=== PATIENT | female | born 1950 | race Caucasian/White ===

== ENCOUNTER 2020-02-02 09:53 | Outpatient (CLI) | payer MEDICARE, SELFPAY ==
[2020-02-02 10:28] LABS: Blood Urea Nitrogen 13 mg/dL (7-17); Calcium 8.8 mg/dL (8.4-10.2); Carbon Dioxide 28 mmol/L (22-30); Chloride 102 mmol/L (98-107); Estimated Glomerular Filt Rate > 60; Glucose 167 mg/dL (65-105); Sodium 137 mmol/L (137-145)
== END 2020-02-02 09:54 | disposition home or self-care (01) ==
PROVIDERS: Anesthesiology; PCP Family Medicine Adolescent Medicine; Visit Provider Surgery Plastic and Reconstructive Surgery
DX: Z79.899 Other long term (current) drug therapy (principal)
CPT/HCPCS: 36415; 80048

== ENCOUNTER 2020-02-08 00:22 | Outpatient (CLI) | payer MEDICARE, SELFPAY ==
[2020-02-08 18:41] LABS: SARS-CoV-2 RNA PCR Negative
== END 2020-02-08 00:23 | disposition home or self-care (01) ==
LOC: ANHCOVIDDT 00:23
PROVIDERS: PCP Family Medicine Adolescent Medicine; Visit Provider Surgery Plastic and Reconstructive Surgery
DX: Z01.812 Encounter for preprocedural laboratory examination (principal); Z20.828 Contact with and (suspected) exposure to other viral communicable diseases
CPT/HCPCS: 87635; C9803; U0003

== ENCOUNTER 2020-02-10 01:53 | Day surgery (SDC) | payer MEDICARE, SELFPAY ==
[2020-01-31 15:29] VITALS: BMI 34.0
[2020-02-10] VITALS (8 sets, daily range): BP systolic 113–150; BP diastolic 52–89; PULSE 49–61; RESP 14–17; TEMP 36.4; O2SAT 92–99
[2020-02-10] MEDS: LACTATED RINGERS 1,000 ML 30 ML IV CONT ×2 (10:50→14:49)
--- NOTE | 2020-02-10 10:59 | WPDANESEPPF ---
Anes - Initial Pre Proc Eval Procedure: Operation Date: 02/10/20 12:00 Proposed Procedures p Removal Two Implants Right Breast, Possible Right Breast Capsulectomy - Nathanael Eng MD Date/Time: 02/10/20 10:59 Surgeon: Nathanael Eng MD Pre Op Diagnosis: Hx Breast Reconstruction Patient Data Age: 69 Gender: F Height: 5 ft 9 in Weight: 103.6 kg Last Vital Signs Temp 36.4 C 02/10/20 10:15 Pulse 61 02/10/20 10:15 Resp 17 02/10/20 10:15 BP 150/72 H 02/10/20 10:15 Pulse Ox 95 02/10/20 10:15 Allergies Allergy/AdvReac Type Severity Reaction Status Date / Time No Known Allergies Allergy Verified 01/31/20 15:02 Home Medications Medication Instructions Recorded Confirmed Type anastrozole 1 mg tablet 1 mg PO HS 01/05/20 01/31/20 History furosemide 20 mg tablet 20 mg PO QAM 01/05/20 01/31/20 History isosorbide dinitrate 20 mg tablet 30 mg PO DAILY 01/05/20 02/10/20 History lisinopril 20 mg tablet 20 mg PO DAILY 01/05/20 02/10/20 History metoprolol tartrate 25 mg tablet 25 mg PO DAILY 01/05/20 02/10/20 History rivaroxaban 20 mg tablet 20 mg PO DAILY 01/05/20 01/31/20 History sertraline 50 mg tablet 50 mg PO HS 01/05/20 02/10/20 History docusate sodium 100 mg capsule 100 mg PO BID #14 cap 02/06/20 Rx docusate sodium 100 mg capsule 100 mg PO BID #14 cap 02/06/20 Rx hydrocodone 5 mg-acetaminophen 325 1 tablet PO Q6H PRN #15 tablet 02/06/20 02/06/20 Rx mg tablet ondansetron HCl 4 mg tablet 4 mg PO Q6H PRN #30 tablet 02/06/20 Rx ondansetron HCl 4 mg tablet 4 mg PO Q6H PRN #30 tablet 02/06/20 Rx Patient hx anesthesia problems: none Family hx anesthesia problems: none PMFSH Past Medical History Medical History Afib Breast cancer 1990, 2019 Hypertension Pacemaker 2004, 2008, 2016 Social History Social History Smoking status: Former smoker Additional smoking assessment comments: [id number] Alcohol intake: current Substance use: never Living arrangements: with family Spiritual care concerns: No Anes - Eval Final PreProcedure Day of Procedure 02/10/20 10:59 Patient weight: obese Heart: regular rate and rhythm Lungs: decreased breath sounds Airway: Mallampati scale class II Neurological: alert and oriented Last oral intake: >/= 8 hours ASA classification: III Emergent: no Anesthetic plan: proceed Anesthesia type and monitoring: general LMA and standard monitoring Informed Consent: The patient's anesthetic plan and its attendant risks and benefits were discussed with the patient/family/POA. Questions were solicited and answers provided to the satisfaction of the patient/family/POA.
--- NOTE | 2020-02-10 12:57 | WPDHPUPDATE1 ---
History and Physical Update Update Date/Time: 02/10/20 12:57 History and Physical has been reviewed, including an updated exam of the patient. There are NO changes in the patient's condition. Risks, benefits, and alternatives have been discussed and questions answered. Patient agrees to proceed with procedure.
[2020-02-10] MEDS: ceFAZolin 2 GM/D5W 50 ML 2 GM/50 ML BAG IVPB (13:24)
[2020-02-10] MEDS: LIDO 1%/EPINEPHRINE 1:100,000 20 ML VIAL 80 ML INFILTRATE (13:55)
--- NOTE | 2020-02-10 14:51 | PM.PROC ---
Procedure Note - Detailed Date of procedure: 02/10/20 Pre-op diagnosis: Hx Breast Reconstruction Post-op diagnosis: same (1. Acquired breast deformity 2. history breast reconstruction) Procedure performed: 1. Right breast implant material removal. 2. Right breast capsulectomy Description of procedure: Patient was marked in the preoperative holding area with her verification. She was taken to the operating room placed supine on the operating room table. Anesthesia was provided by anesthesiology and prepped and draped in a standard sterile fashion. Surgical time-out was taken. 1% lidocaine and 0.25% Marcaine with epinephrine was used anesthetize as a field block. A 15 blade used to make an incision along the lateral inferior scar. Dissection was continued down to the capsule was identified. I completely excised the capsule. It was clear the implant had ruptured and this was removed and was textured. She was confident there were 2 implants and as such I could not find any implant laterally and I opened dissection of the medial/superior incision. Thorough examination did not identify an additional implant. I copiously irrigated with 1500 cc of saline on TUR tubing. Placed a 15 Al drain laterally and sutured into place with 3-0 nylon. I closed with 2-0 Vicryl followed by 3-0 Monocryl in a running subcuticular 4-0 Monocryl with tissue glue. Surgical bra and dressings were placed. She was awoken taken the PACU without difficulty. All instrument sponge counts were correct at the end of the case. Anesthesia: GLMA Surgeon: Nathanael Eng MD Estimated blood loss (mL): 10 Drains: Yes (15 Al) Packing: No Pathology: yes (Capsule / tissue) Complications: No immediate complications Condition: stable Disposition: PACU Findings: Textured / ruptured right breast implant. Only a single implant was identified. The patient had reported 2 implants present.
== END 2020-02-10 16:56 | disposition home or self-care (01) ==
PROVIDERS: PCP Family Medicine Adolescent Medicine; Visit Provider Surgery Plastic and Reconstructive Surgery
PROC: (CPT 19342; principal; 2020-02-10 12:00)
DX: T85.41XA Breakdown (mechanical) of breast prosthesis and implant, initial encounter (principal); Z85.3 Personal history of malignant neoplasm of breast; Z90.12 Acquired absence of left breast and nipple; I10 Essential (primary) hypertension; Z95.0 Presence of cardiac pacemaker; Z87.891 Personal history of nicotine dependence; Z79.899 Other long term (current) drug therapy; X58.XXXA Exposure to other specified factors, initial encounter
CPT/HCPCS: 19371; 88304; 88305; J0690; J1100; J2250; J2405; J2704; J3010; J7120

== ENCOUNTER 2021-08-26 08:30 | Outpatient (RCR) | payer MEDICARE, SELFPAY ==
--- NOTE | 2021-08-12 11:29 | PTOPEVAL ---
PHYSICAL THERAPY EVALUATION and PLAN OF CARE Thank you for referring Nilda Mary to [facility] [place].? Nilda will follow up every two weeks for a month as needed. Please review, sign, date and return this plan of care RAVI. I agree with and certify that the following plan of care is medically necessary. Referring Physician Date Attending Provider: Trista Martin, PA Evaluation Outpatient Past Medical History Neurological History Hx Neurological Disorders No Significant History Cardiovascular History Hx Atrial Fibrillation Yes: HX OF Hx Congestive Heart Failure Yes: HX OF Hx Hypertension Yes Hx Pacemaker Yes: 2003, 2018 Musculoskeletal History Hx Arthritis Yes: HANDS & SHOULDERS Hx Orthopedic Surgery Yes: RT CARPAL TUNNEL RELEASE, BILATERAL ROTATOR CUFF REPAIR HEENT History Hx Macular Degeneration Yes Hx Dental Problems Yes: LOWER PARTIAL Hx Other HEENT Disorders Yes: READING GLASSES Integumentary History Hx Shingles Yes: HX OF FACE Reproductive History Hx Post Menopausal Yes Hx Other Reproductive Disorders Yes: RT BREAST CA 1990, LT BREAST CA 2019 LT LUMPECTOMY Psychosocial History Hx Bipolar Disorder Yes Other History Hx Cancer Yes: RT BREAST CA 1990, LT BREAST CA 2019 Hx Chemotherapy Yes: WITH RT BREAST CA Hx Implanted Device Yes: PACEMAKER Hx Radiation Therapy Yes: WITH LT BREAST CA Hx Recent Acute Infection Yes: UTI DECEMBER - ANTIBIOTICS COMPLETED STATES DR. VILLAR AWARE Diagnosis stress incontinence Onset chronic Subjective Information Nilda reports that she has Query Text:As Reported By Patient/ been having some stress Family urinary incontinence. States that she was informed by her doctor that tea is a bladder irritant so she eliminated that from her diet and the problem is much better. Will sometimes have a sudden urge to go and will not quite made it to the bathroom. Some leakage with sneezing and coughing when the bladder is more full. No longer feels like she has to use a pad or a liner since she eliminated the tea. Experiences strong urge to go to the bathroom
--- NOTE | 2021-08-26 09:06 | PTOPEVAL ---
PHYSICAL THERAPY DISCHARGE NOTE Thank you for referring Nilda Mary to [facility].? Nilda participated in physical therapy to address stress and urge incontinence. Please review, sign, date and return this plan of care RAVI. I agree with and certify that the following plan of care is medically necessary. Referring Physician Date Attending Provider: Trista Martin, PA Discharge Diagnosis stress incontinence Onset chronic Subjective Information Nilda states that she has been Query Text:As Reported By Patient/ doing her exercises and Family states that she has not been having any leaking since starting them. She feels like she has control over her bladder. Is not rushing to go to the bathroom anymore. Self Report Self Report Pain Level 0 Pain Score Pain Score 0: Self Report Pelvic Health Evaluation Nutrition Water Intake (8oz cups/day) 5 Pelvic Floor Assessment Permission Received for External/ Yes: external Internal Perineal Exam Quick Levator Ani Contraction in 15 8 Seconds Pelvic Health Therapy Pelvic Health Exercise Isolated Levator Ani Contraction educated to perform in Query Text:Position, Hold/Relaxation hooklying 10reps x4sets/day Time, Repetitions Overflow Technique, Hip Add with Ball hip add set with ball and Hip, Hip Abd with Band breathing, hip abd set with Query Text:Position, Hold/Relaxation band and breathing Time, Repetitions Relaxation Technique diaphragmatic breathing, adding pelvic floor contraction Other Exercises -bent knee fall out with Query Text:Record Sets, Repetitions, steady breathing (avoiding Resistance and Position valsava) and steady abdominal and pelvic floor contraction with monreal band - lower abdominal bracing: right knee at 90/90 and left marching progressing to extending out; same on contralateral side -discussion and education on how to progress exercises, muscle hypertrophy, manage muscle strength with aging -educated on valsalva maneuver and the how to avoid valsalva maneuver in daily functional tasks including sit to stand
== END 2021-10-28 14:42 | disposition home or self-care (01) ==
LOC: ANHPT 08:30
PROVIDERS: PCP Family Medicine Adolescent Medicine; Visit Provider Physician Assistant
DX: N39.3 Stress incontinence (female) (male) (principal)
CPT/HCPCS: 97110; 97163; 97530

== ENCOUNTER → 2021-09-10 09:56 | Outpatient (CLI) | payer MEDICARE, SELFPAY ==
[2021-09-10 12:03] LABS: SARS-CoV-2 RNA PCR Negative
== END ==
PROVIDERS: PCP Family Medicine Adolescent Medicine; Visit Provider Family Medicine Adolescent Medicine
DX: R05.9 Cough, unspecified (principal); Z20.822 Contact with and (suspected) exposure to COVID-19
CPT/HCPCS: C9803; U0003; U0005

== ENCOUNTER → 2022-08-13 11:20 | Outpatient (CLI) | payer MEDICARE, SELFPAY ==
--- NOTE | ~2022-08-13 | XR_ITS ---
EXAMINATION: XR chest 2V 08/13/2022 12:00 INDICATION: Cough PROCEDURE: PA and lateral views of the chest COMPARISON: 03/29/2015 FINDINGS: The lungs are clear. Cardiomegaly. Pacemaker leads are stable. There are surgical changes o verlying the left lower thorax. There are no pleural effusions. There is no pneumothorax suspected. IMPRESSION: 1: NO ACUTE CARDIOPULMONARY DISEASE. Reviewed, dictated and finalized at location A. GRAPHER AGENT
== END ==
PROVIDERS: PCP Family Medicine Adolescent Medicine; Visit Provider Family Medicine Adolescent Medicine
DX: R05.9 Cough, unspecified (principal)
CPT/HCPCS: 71046

== ENCOUNTER 2022-12-21 16:17 | Emergency (ER) | payer MEDICARE, SELFPAY ==
--- NOTE | ~2022-12-21 | XR_ITS ---
Right foot Technique: AP, oblique, and lateral views were obtained. Clinical History: Pain Findings: There is minimally displaced transverse fracture the base of the fifth metatarsal. No other fracture or dislocation seen. There is degenerative change of the fifth digit PIP and DIP joints. So ft tissues are unremarkable. Impression: Transverse, nearly nondisplaced fracture through the base of the fifth metatarsal. Reviewed, dictated and finalized at location . Impression: Transverse, nearly nondisplaced fracture through the base of the fifth metatars al.
[2022-12-21 16:39] VITALS: BP 160/87; PULSE 68; RESP 20; TEMP 36.5; O2SAT 97
--- NOTE | 2022-12-21 17:02 | ED.LOWEXIN ---
HPI - Extremity Injury (Lower) General Chief Complaint: Extremity Injury, Lower Stated Complaint: right foot pain Time Seen by Provider: 12/21/22 16:54 Source: patient and RN notes reviewed Mode of arrival: ambulatory (with walker) Limitations: no limitations History of Present Illness HPI Narrative: Patient presents today complaining of right lateral foot pain. States she fell 2 weeks ago hurting her knee and ankle and was subsequently seen at her orthopedic doctor's office where x-rays were completed and were negative, but she started experiencing pain in her lateral foot yesterday. Denies numbness or tingling. Currently rates her pain 01/05 and has tried no medication for symptoms prior to arrival. Related Data Home Medications Medication Instructions Recorded Confirmed anastrozole 1 mg tablet 1 mg PO HS 01/05/20 12/21/22 furosemide 20 mg tablet 20 mg PO QAM 01/05/20 12/21/22 isosorbide dinitrate 20 mg tablet 30 mg PO DAILY 01/05/20 12/21/22 lisinopril 20 mg tablet 20 mg PO DAILY 01/05/20 12/21/22 rivaroxaban 20 mg tablet (Xarelto) 20 mg PO DAILY 01/05/20 12/21/22 atorvastatin 20 mg tablet 20 mg PO DAILY 09/27/21 12/21/22 cholecalciferol (vitamin D3) 25 25 mcg PO DAILY 09/27/21 12/21/22 mcg (1,000 unit) capsule dicyclomine 10 mg capsule 10 mg PO BID 09/27/21 12/21/22 metoprolol succinate 25 mg 25 mg PO DAILY 09/27/21 12/21/22 tablet,extended release 24 hr omeprazole 40 mg capsule,delayed 40 mg PO DAILY 09/27/21 12/21/22 release sertraline 100 mg tablet 150 mg PO DAILY 09/27/21 12/21/22 vit C 250 mg-vit E 200 unit-zinc 1 cap PO BID 09/27/21 12/21/22 ox 12.5 [id number] capsule (ICaps AREDS2) fesoterodine 4 mg tablet,extended 4 mg PO DAILY 12/21/22 12/21/22 release 24 hr Allergies Allergy/AdvReac Type Severity Reaction Status Date / Time No Known Allergies Allergy Verified 12/21/22 16:52 Review of Systems Review of Systems: CONSTITUTIONAL: Denies body aches, fever, chills, or sweats. EYES: Denies visual changes, redness, or discharge. ENT: Denies rhinorrhea, congestion, sore throat, or otalgia. CARDIOVASCULAR: Denies chest pain, palpitations, or edema. RESPIRATORY: Denies cough or dyspnea. GASTROINTESTINAL: Denies abdominal pain, nausea, vomiting, or diarrhea. GENITOURINARY: Denies dysuria or hematuria. SKIN: Denies rash, itching, or wounds. MUSCULOSKELETAL: Denies back pain, or myalgia.+ right foot pain NEUROLOGIC: Denies headache, numbness, tingling, or weakness. PSYCH: Denies depression or anxiety. [facility] Past Medical History Medical History Breast cancer 1990, 2018 History of radiation therapy Hypertension Normal colonoscopy 01/16 Pacemaker 2003, 2008, 2016 Ruptured right breast implant Surgical History Surgical History H/O repair of right rotator cuff History of breast reconstruction History of lumpectomy of left breast Hx of cardiac cath Hx of lumbosacral spine surgery Hx of repair of left rotator cuff Status post trigger finger release Family History Family History Mother Acute myocardial infarction Breast cancer Cerebrovascular accident Heart disease Hypertension Father Acute myocardial infarction Depression Heart disease Grandparent Breast cancer Social History Social History Smoking status: Former smoker Smoking end date: 06/29/03 Additional smoking assessment comments: [id number] Alcohol intake: current Alcohol use details: Rarely Substance use: never Substance use type: does not use Living arrangements: with family Occupation/Education: retired Gender identity (if verbalized by the patient): Female Sexual Orientation (if Verbalized by the Patient): Straight or Heterosexual
== END 2022-12-21 17:23 | disposition home or self-care (01) ==
PROVIDERS: Emergency Provider Nurse Practitioner; PCP Family Medicine Adolescent Medicine
DX: S92.354A Nondisplaced fracture of fifth metatarsal bone, right foot, initial encounter for closed fracture (principal); X58.XXXA Exposure to other specified factors, initial encounter; I10 Essential (primary) hypertension; Z85.3 Personal history of malignant neoplasm of breast; Z95.0 Presence of cardiac pacemaker; Z92.3 Personal history of irradiation
CPT/HCPCS: 73630; 99214; G0463

== ENCOUNTER 2023-02-11 16:32 | Emergency (ER) | payer MEDICARE, SELFPAY ==
[2023-02-11 16:38] VITALS: BP 124/63; BP 129/63; PULSE 65; RESP 18; TEMP 36.8; O2SAT 96
--- NOTE | 2023-02-11 16:58 | ED.ABDPAIN ---
HPI - Abdominal Pain General Chief Complaint: Abdominal Pain Stated Complaint: Abdominal Pain Time Seen by Provider: 02/11/23 16:58 Source: patient and RN notes reviewed Mode of arrival: ambulatory Limitations: no limitations History of Present Illness HPI narrative: 72y/o female with hx afib, breast cancer, CAD, and IBS-D presented for c/o right upper abdominal pain radiating to right shoulder worsening since yesterday. LBM today, diarrhea. Endorses decreased appetite today with mild nausea. Rates pain 6/10, constant, worse with palpation. Last meal was breakfast, stratton gravy and biscuits, and states she drank large amount of lemonade today. Denies chest pain, palpitations, vomiting, constipation, hematochezia, melena, urinary complaints, flank pain, fever or chills. Hx abdominal surgery TRAM flap. Related Data Home Medications Medication Instructions Recorded Confirmed anastrozole 1 mg tablet 1 mg PO HS 01/05/20 02/11/23 isosorbide dinitrate 20 mg tablet 30 mg PO DAILY 01/05/20 02/11/23 lisinopril 20 mg tablet 20 mg PO DAILY 01/05/20 02/11/23 rivaroxaban 20 mg tablet (Xarelto) 20 mg PO DAILY 01/05/20 02/11/23 atorvastatin 20 mg tablet 20 mg PO DAILY 09/27/21 02/11/23 cholecalciferol (vitamin D3) 25 25 mcg PO DAILY 09/27/21 02/11/23 mcg (1,000 unit) capsule dicyclomine 10 mg capsule 10 mg PO BID 09/27/21 02/11/23 metoprolol succinate 25 mg 25 mg PO DAILY 09/27/21 02/11/23 tablet,extended release 24 hr omeprazole 40 mg capsule,delayed 40 mg PO DAILY 09/27/21 02/11/23 release fesoterodine 4 mg tablet,extended 4 mg PO DAILY 12/21/22 02/11/23 release 24 hr furosemide 20 mg tablet 40 mg PO QAM 12/29/22 02/11/23 Allergies Allergy/AdvReac Type Severity Reaction Status Date / Time No Known Allergies Allergy Verified 02/11/23 16:38 Review of Systems Review of Systems: CONSTITUTIONAL: Denies body aches, fever, chills ENT: Denies rhinorrhea, congestion CARDIOVASCULAR: Denies chest pain, palpitations, or edema. RESPIRATORY: Denies cough or dyspnea. GASTROINTESTINAL: Endorses RUQ abdominal pain, nausea, diarrhea. Denies vomiting,hematochezia, melena, hematemesis GENITOURINARY: Denies dysuria, hematuria, or CVA tenderness. SKIN: Denies rash, itching, or wounds. MUSCULOSKELETAL: Denies back pain, joint pain, or myalgia. NEUROLOGIC: Denies headache, numbness, tingling, or weakness. All systems reviewed & are unremarkable except as noted in HPI and below PMFSH Past Medical History Medical History (Updated 02/11/23 @ 17:23 by Ledy Bailey APRN) Breast cancer 1990, 2018 CAD (coronary artery disease) CHF (congestive heart failure) Chronic atrial fibrillation, unspecified History of radiation therapy Hypertension Normal colonoscopy 01/16 Pacemaker 2003, 2008, 2016 Ruptured right breast implant Surgical History Surgical History H/O repair of right rotator cuff History of breast reconstruction History of lumpectomy of left breast Hx of cardiac cath Hx of lumbosacral spine surgery Hx of repair of left rotator cuff Status post trigger finger release Family History Family History Mother Acute myocardial infarction Breast cancer Cerebrovascular accident Heart disease Hypertension Father Acute myocardial infarction Depression Heart disease Grandparent Breast cancer Social History Social History Smoking status: Former smoker Smoking end date: 06/29/03 Additional smoking assessment comments: [id number] Alcohol intake: current Alcohol use details: Rarely Substance use: never Substance use type: does not use Lack of Transportation: No Lack of Food: Never True Current Housing: I Have Housing Concerned About Future Housing: No Difficulty Paying Gas/Electric Bills: No Difficulty Paying f
== END 2023-02-11 17:17 | disposition short-term general hospital (02) ==
PROVIDERS: Emergency Provider Nurse Practitioner Family; PCP Family Medicine Adolescent Medicine
DX: R10.11 Right upper quadrant pain (principal); Z87.891 Personal history of nicotine dependence; I11.0 Hypertensive heart disease with heart failure; I50.9 Heart failure, unspecified; I48.20 Chronic atrial fibrillation, unspecified; Z95.0 Presence of cardiac pacemaker; Z85.3 Personal history of malignant neoplasm of breast; Z92.3 Personal history of irradiation
CPT/HCPCS: 99212; G0463

== ENCOUNTER → 2023-07-06 11:26 | Outpatient (CLI) | payer MEDICARE, SELFPAY ==
--- NOTE | ~2023-07-06 | XR_ITS ---
AP and oblique views of the right ribs, and PA chest radiograph Clinical History: Pain Findings: No rib fracture is seen. Osseous alignment is anatomic. Lungs are clear, without focal cons olidation or pleural effusion. Cardiomediastinal contour is prominent, with pacemaker device. Soft ti ssues are unremarkable. Impression: No rib fracture is seen. Clear lungs. Cardiomegaly with pacemaker device. Reviewed, dictated and finalized at location . ORATE SERVICES MANAGER Impression: No rib fracture is seen. Clear lungs. Cardiomegaly with pacemaker device.
== END ==
PROVIDERS: PCP Family Medicine Adolescent Medicine; Visit Provider Family Medicine Adolescent Medicine
DX: R07.89 Other chest pain (principal); I51.7 Cardiomegaly
CPT/HCPCS: 71101

== ENCOUNTER 2023-08-15 13:46 | Emergency (ER) | payer OTHER, MEDICARE, SELFPAY ==
[2023-08-15 14:05] VITALS: PULSE 54; RESP 20; TEMP 37; O2SAT 98
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
== END 2023-08-15 14:28 | disposition home or self-care (01) ==
PROVIDERS: Emergency Provider Nurse Practitioner; PCP Family Medicine Adolescent Medicine
DX: M54.2 Cervicalgia (principal); V49.60XA Unspecified car occupant injured in collision with unspecified motor vehicles in traffic accident, initial encounter; Z87.891 Personal history of nicotine dependence; I25.10 Atherosclerotic heart disease of native coronary artery without angina pectoris; I11.0 Hypertensive heart disease with heart failure; I50.9 Heart failure, unspecified; I48.20 Chronic atrial fibrillation, unspecified; Z95.0 Presence of cardiac pacemaker; Z85.3 Personal history of malignant neoplasm of breast; Z90.12 Acquired absence of left breast and nipple; Z92.3 Personal history of irradiation
CPT/HCPCS: 99213; G0463